=== PATIENT | female | born 1960 | race African-American/Black ===

== ENCOUNTER 2018-08-10 15:48 | Inpatient (IN) | payer MEDICAID, OTHER ==
[~2018-08-10] VITALS: Ht 160 cm; Wt 74.4 kg
[~2018-08-10 15:48] MED LIST: ARTIFICIAL TEARS; FLUT50DI; KETO5DRO7; OMEPRAZOLE; SIME80TA14
[2018-08-10] MEDS ORDERED: ONDANSETRON HCL 4MG/2ML INJ IV STA (20:24)
[2018-08-10] MEDS ORDERED: KETOROLAC 30MG/ML VIAL IV STA (20:24)
[2018-08-10] MEDS ORDERED: FAMOTIDINE 20MG/2ML VIAL IV STA (20:24)
[2018-08-10 20:50] LABS: CLARITY URINE CLOUDY (CLEAR); COLOR URINE DARK YELLOW (YELLOW); KETONES URINE 1+ (NEGATIVE); LEUKOCYTE ESTERASE URINE 1+ (NEGATIVE); NITRITE URINE POSITIVE (NEGATIVE); OCCULT BLOOD URINE NEGATIVE (NEGATIVE); PH URINE 5.5 (4.5-8.0); PROTEIN URINE 1+ (NEGATIVE); SPECIFIC GRAVITY URINE 1.041 (1.005-1.030)
[2018-08-10 20:53] LABS: BASOPHILS % 0.5 % (0.0-2.0); EOSINOPHILS % 0.3 % (0.0-5.0); HEMATOCRIT. 46.9 % (36.0-48.0); HEMOGLOBIN. 16.1 g/dL (12.0-16.0); LYMPHOCYTES % 38.4 % (20.0-50.0); MEAN CORPUSCULAR VOLUME 96.1 fL (81.0-99.0); NEUTROPHILS % 52.8 % (40.0-76.0); PLATELET 204 x1000/uL (130-400); RED BLOOD CELL COUNT 4.88 mill/uL (4.2-5.4); RED CELL DISTRIBUTION WIDTH 14.3 % (11.6-14.6)
[2018-08-10 20:54] LABS: CHLORIDE 99 mEq/L (98-107)
[2018-08-10 20:58] LABS: ETHANOL BLOOD < 10 mg/dL
[2018-08-10 21:04] LABS: *AMPHETAMINES SCREEN URINE NEGATIVE (NEGATIVE); *BARBITURATES SCREEN URINE NEGATIVE (NEGATIVE); *BENZODIAZEPINES SCREEN URINE NEGATIVE (NEGATIVE); *COCAINE SCREEN URINE NEGATIVE (NEGATIVE); METHADONE URINE SCREEN NEGATIVE (NEGATIVE); OPIATES URINE SCREEN NEGATIVE (NEGATIVE)
[2018-08-10 21:05] LABS: CANNABINOID URINE SCREEN NEGATIVE (NEGATIVE); PHENCYCLIDINE URINE SCREEN NEGATIVE (NEGATIVE)
[2018-08-10] MEDS ORDERED: SODIUM CHLORIDE 0.9% 1000ML BAG (SEPSIS BOLUS) IV ONE (22:30)
[2018-08-10] MEDS ORDERED: PIPERACILLIN/TAZ 3.375G PREMIX 50 ML IV ONE (22:30)
[2018-08-10] MEDS ORDERED: ONDANSETRON HCL 4MG/2ML INJ IV ONE (23:15)
[2018-08-10] MEDS ORDERED: FENTANYL CITRATE/PF 50MCG/ML 2ML VIAL IV ONE (23:15)
[2018-08-11] MEDS ORDERED: GUAIFENESIN 200MG/10ML SUGAR FREE UDC PO PRN
[2018-08-11] MEDS ORDERED: HYDRALAZINE 20MG/ML VIAL IV PRN
[2018-08-11] MEDS ORDERED: ACETAMINOPHEN 325MG TABLET PO PRN
[2018-08-11] MEDS ORDERED: DOCUSATE SODIUM 100MG CAPSULE PO PRN
[2018-08-11] MEDS ORDERED: MAGNESIUM/ALUMINUM HYDROXIDE/SIMETHICONE 30ML UDC PO PRN
[2018-08-11] MEDS ORDERED: HYDROMORPHONE HCL/PF 2MG/ML CPJ IV PRN
[2018-08-11] MEDS ORDERED: NA PHOS,M-B/NA PHOS,DI-BA ENEMA 118ML PR PRN
[2018-08-11] MEDS ORDERED: ONDANSETRON HCL 4MG/2ML INJ IV PRN
[2018-08-11] MEDS ORDERED: LORAZEPAM 2MG/ML CPJ IV PRN
[2018-08-11] MEDS ORDERED: CLONIDINE 0.1MG TABLET PO PRN
[2018-08-11] MEDS ORDERED: IPRATROPIUM/ALBUTEROL 0.5-3(2.5)MG/3ML NEB INH PRN
[2018-08-11] MEDS: DEXT 5%/0.45% NACL 1000ML 1,000 ML IV SCH (02:56)
[2018-08-11] MEDS ORDERED: LISI2.5T47 PO (05:07)
[2018-08-11] MEDS ORDERED: POTA10TA15 PO (05:07)
[2018-08-11] MEDS ORDERED: SERT50TA12 PO (05:08)
[2018-08-11] MEDS ORDERED: CALC-3 PO (05:08)
[2018-08-11] MEDS ORDERED: FURO20TA4 PO (05:09)
[2018-08-11] MEDS ORDERED: VITA400C19 PO (05:10)
[2018-08-11] MEDS ORDERED: DOCU-150 PO (05:10)
[2018-08-11] MEDS ORDERED: VITA1TAB15 PO (05:11)
[2018-08-11] MEDS ORDERED: PIPERACILLIN/TAZ 3.375G PREMIX 50 ML IV SCH (06:00)
[2018-08-11] MEDS: SODIUM CHLORIDE 0.9% INJ 3ML FLUSH IVF SCH ×3 (06:20→21:00)
[2018-08-11 08:16] LABS: BASOPHILS % 0.3 % (0.0-2.0); EOSINOPHILS % 1.5 % (0.0-5.0); HEMATOCRIT. 41.6 % (36.0-48.0); MEAN CORPUSCULAR HEMOGLOBIN 32.9 pg (28.0-32.0); MEAN CORPUSCULAR VOLUME 97.5 fL (81.0-99.0); MEAN PLATELET VOLUME 8.2 fl (7.4-10.4); MONOCYTES % 8.5 % (2.0-8.0); NEUTROPHILS % 41.7 % (40.0-76.0); PLATELET 148 x1000/uL (130-400); RED BLOOD CELL COUNT 4.26 mill/uL (4.2-5.4); RED CELL DISTRIBUTION WIDTH 14.2 % (11.6-14.6)
[2018-08-11 08:18] LABS: CHLORIDE 102 mEq/L (98-107)
[2018-08-11 09:01] VITALS: BP 125/65
[2018-08-11] MEDS ORDERED: DIPHENHYDRAMINE 50MG/ML VIAL IM PRN (10:00)
[2018-08-11 10:28] VITALS: BP 125/65
[2018-08-11 12:00] VITALS: BP 122/75
[2018-08-11] MEDS: PANTOPRAZOLE SODIUM 40 MG/VIAL IV SCH (15:00)
[2018-08-11] MEDS: ENOXAPARIN 40MG/0.4ML SYR SUBCUT SCH (15:02)
[2018-08-11] MEDS: HYDROCODONE/ACETAMINOPHEN 10/325MG TABLET PO PRN ×2 (15:20→20:54)
[2018-08-11] MEDS ORDERED: POTASSIUM CHLORIDE 20MEQ TABLET SR PO NR (15:45)
[2018-08-11 16:30] VITALS: BP 127/78
[2018-08-11] MEDS: PIPERACILLIN/TAZ 3.375G PREMIX 50 ML IV SCH ×2 (17:09→21:00)
[2018-08-11 20:00] VITALS: BP 115/79
[2018-08-11] MEDS ORDERED: LATANOPROST 0.005% OPHTH DROPS 2.5ML BOTHEYE SCH (21:00)
[2018-08-11] MEDS: DIPHENHYDRAMINE 50MG/ML VIAL IV PRN (23:12)
[2018-08-12] VITALS: BP 133/87
[2018-08-12] MEDS: DEXT 5%/0.45% NACL 1000ML 1,000 ML IV SCH ×2 (01:00→11:41)
[2018-08-12] MEDS: HYDROCODONE/ACETAMINOPHEN 10/325MG TABLET PO PRN ×2 (02:31→09:00)
[2018-08-12] MEDS: DIPHENHYDRAMINE 50MG/ML VIAL IV PRN ×2 (03:32→08:59)
[2018-08-12 04:00] VITALS: BP 115/70
[2018-08-12] MEDS: PIPERACILLIN/TAZ 3.375G PREMIX 50 ML IV SCH ×2 (05:04→14:04)
[2018-08-12] MEDS: SODIUM CHLORIDE 0.9% INJ 3ML FLUSH IVF SCH ×2 (06:17→14:09)
[2018-08-12 08:00] VITALS: BP 124/81
[2018-08-12] MEDS: PANTOPRAZOLE SODIUM 40 MG/VIAL IV SCH (09:00)
[2018-08-12] MEDS: ENOXAPARIN 40MG/0.4ML SYR SUBCUT SCH (09:00)
[2018-08-12 12:00] VITALS: BP 115/79
[2018-08-12 13:03] LABS: HEMATOCRIT 36.2 % (36.0-48.0); HEMOGLOBIN 12.2 g/dL (12.0-16.0); MEAN CORPUSCULAR HEMOGLOBIN 32.7 pg (28.0-32.0); MEAN CORPUSCULAR VOLUME 97.2 fL (81.0-99.0); PLATELET 103 x1000/uL (130-400); RED BLOOD CELL COUNT 3.73 mill/uL (4.2-5.4); RED CELL DISTRIBUTION WIDTH 13.7 % (11.6-14.6)
[2018-08-12 13:07] LABS: CHLORIDE 104 mEq/L (98-107)
[2018-08-12] MEDS ORDERED: POTASSIUM CHLORIDE 20MEQ TABLET SR PO SCH (14:30)
[2018-08-12 16:00] VITALS: BP 109/70
[2018-08-12 16:21] VITALS: BP 109/70
== END 2018-08-12 18:37 | disposition home or self-care (01) | DRG 720 ==
LOC: ER 15:48 → 8WST 23:12 → ENRESERV 08-11 04:48
PROVIDERS: ADMIT Internal Medicine; ATTEND Internal Medicine
DX: A41.9 Sepsis, unspecified organism (principal); E87.2 Acidosis; N39.0 Urinary tract infection, site not specified; R10.9 Unspecified abdominal pain; K21.9 Gastro-esophageal reflux disease without esophagitis; I10 Essential (primary) hypertension; R74.0 Nonspecific elevation of levels of transaminase and lactic acid dehydrogenase [LDH]; W18.30XA Fall on same level, unspecified, initial encounter; Y93.89 Activity, other specified; Y92.89 Other specified places as the place of occurrence of the external cause; Y99.8 Other external cause status; K80.20 Calculus of gallbladder without cholecystitis without obstruction
CPT/HCPCS: 36415; 73080; 74181; 76705; 78227; 80305; 80320; 83605; 85027; 96365; 96366; 96375; 99285; A9537; C9113; J1170; J1200; J1650; J1885; J2405; J2543; J3010; J3490; J7030; J7040; G0480